=== PATIENT | male | born 1980 | race African-American/Black ===

== ENCOUNTER 2020-11-06 14:11 | Emergency (ER) | payer OTHER ==
[~2020-11-06] VITALS: Ht 180.3 cm; Wt 80.7 kg
[2020-11-06 15:17] VITALS: BP 134/88; Ht 180.3 cm; Wt 80.7 kg
== END 2020-11-06 16:55 | disposition home or self-care (01) ==
LOC: ED 14:11
DX: T23.102A Burn of first degree of left hand, unspecified site, initial encounter (principal); T23.101A Burn of first degree of right hand, unspecified site, initial encounter; X08.8XXA Exposure to other specified smoke, fire and flames, initial encounter; Y93.89 Activity, other specified; Y92.89 Other specified places as the place of occurrence of the external cause; Y99.8 Other external cause status